=== PATIENT | male | born 1995 | race Two or more races ===

== ENCOUNTER 2022-07-19 16:10 | Emergency (ER) | payer OTHER ==
[2022-07-19] MEDS ORDERED: KETOROLAC TROMETHAMINE 30 MG/1 ML VIAL IM ONE (16:14)
[2022-07-19 16:18] VITALS: BP 127/78; PULSE 99; RESP 16; TEMP 98; BMI 21.5
[2022-07-19] MEDS ORDERED: KETOROLAC TROMETHAMINE 30 MG/1 ML VIAL ONE (16:21)
== END 2022-07-19 18:16 | disposition home or self-care (01) ==
LOC: FER 16:10
PROC: 2W3QX1Z Immobilization of Right Lower Leg using Splint (ICD-10-PCS; principal; 2022-07-19)
PROC: 3E0233Z Introduction of Anti-inflammatory into Muscle, Percutaneous Approach (ICD-10-PCS; 2022-07-19)
DX: S93.401A Sprain of unspecified ligament of right ankle, initial encounter (principal); X50.0XXA Overexertion from strenuous movement or load, initial encounter; Y93.67 Activity, basketball
CPT/HCPCS: 73610-TC-RT-FY; 99284-25